=== PATIENT | male | born 1960 | race Caucasian/White ===

== ENCOUNTER 2020-05-24 06:05 | Day surgery (SDC) | payer MEDICARE ==
[~2020-05-24] VITALS: Ht 180.3 cm; Wt 87.1 kg
[~2020-05-24 06:05] MED LIST: AMITRIPTYLIN25 MG PO; ASPIRIN81 MG PO; COQ10200 MG PO; GABAPENTIN100 MG PO; HYDROCHLOROT25 MG PO; KRILL OIL OMEG300 MG PO; LEVOTHYROXIN150 MCG PO; LIPITOR10 M1 PO; LOSARTAN POTASS50 MG PO; MELOXICAM7.5 MG PO; METFORMIN500 MG PO; MORPHINE SUL30 M3 PO; OXYCODONE15 MG PO; SLOW-MAG PO; TIZANIDINE HCL4 M1 PO; TOPROL XL50 MG PO; VITAMIN C500 MG PO; VITAMIN E400 UNIT PO; ZINC100 M1 PO; [UNRECOGNIZED DRUG - OTHER] PO
[2020-05-24 09:12] VITALS: BP 127/79
== END 2020-05-24 09:36 | disposition home or self-care (01) ==
LOC: ENDO 06:05 → ORM 11:00
PROVIDERS: ATTEND Surgery
PROC: 0DBM8ZX Excision of Descending Colon, Via Natural or Artificial Opening Endoscopic, Diagnostic (ICD-10-PCS; principal; 2020-05-24)
PROC: 0DBL8ZX Excision of Transverse Colon, Via Natural or Artificial Opening Endoscopic, Diagnostic (ICD-10-PCS; 2020-05-24)
DX: Z12.11 Encounter for screening for malignant neoplasm of colon (principal); D12.3 Benign neoplasm of transverse colon; K63.5 Polyp of colon; K50.10 Crohn's disease of large intestine without complications; K57.30 Diverticulosis of large intestine without perforation or abscess without bleeding; K64.8 Other hemorrhoids; F17.210 Nicotine dependence, cigarettes, uncomplicated; Z86.010 Personal history of colon polyps; Z11.59 Encounter for screening for other viral diseases